=== PATIENT | female | born 1990 | race Caucasian/White ===

== ENCOUNTER 2018-05-20 10:18 | Emergency (ER) | END 2018-05-20 12:53 | disposition home or self-care (01) ==

== ENCOUNTER 2018-08-13 17:11 | Emergency (ER) | payer SELFPAY ==
[~2018-08-13] VITALS: Ht 157.5 cm; Wt 66.0 kg
[~2018-08-13 17:11] MED LIST: ONDA4TAB14 PO
[2018-08-13 17:14] VITALS: BP 119/65; PULSE 82; RESP 20; Ht 157.5 cm; Wt 66.0 kg
== END 2018-08-13 19:17 | disposition left against medical advice (07) ==
LOC: FTE 17:11
DX: Z53.21 Procedure and treatment not carried out due to patient leaving prior to being seen by health care provider (principal)
CPT/HCPCS: 93005